=== PATIENT | male | born 2000 | race Asian ===

== ENCOUNTER 2022-03-02 16:03 | Outpatient (CLI) | payer OTHER ==
--- NOTE | 2022-03-02 19:03 | XRAY Report ---
PROCEDURE: Elbow 3 View RT INDICATIONS: CONTUSION OF RIGHT ELBOW TECHNIQUE: 3 views of the elbow were acquired. COMPARISON: None FINDINGS: Bones: No fractures or dislocations. No suspicious bony lesions. Soft tissues: No elbow joint effusion. No suspicious soft tissue calcifications. IMPRESSION: Normal right elbow radiographs Reviewed by: Tal Ortega MD on 03/02/2022 6:01 PM [place] Approved by: Tal Ortega MD on 03/02/2022 6:01 PM [facility] Station ID: [id number]
== END 2022-03-02 16:04 | disposition home or self-care (01) ==
LOC: DI 16:03
PROVIDERS: ATTEND Physician Assistant
DX: S50.01XA Contusion of right elbow, initial encounter (principal)

== ENCOUNTER 2022-11-24 10:22 | Outpatient (CLI) | payer OTHER ==
--- NOTE | 2022-11-24 11:40 | Sleep Patient Instructions ---
Sleep Center Visit Summary - Patient Visit Information Reason for Visit: Initial Consultation - Patient Instructions Instructions Attached: Sleep Study Home Monitor, Sleep Clinic Visit, Sleep Study Additional Instructions: You will be completing a sleep study, either an in-lab polysomnography (PSG) or home sleep study (HST). You will follow-up in the sleep care office after the sleep study is completed to hear the results and talk about therapy, if needed. You will be called by our office staff to schedule this appointment, but you may contact us with any questions. - Clinic Information Contact: [facility] [address] [place] [email or web address] T: [phone]
--- NOTE | 2022-11-24 11:44 | SLEEP CARE CONSULTATION ---
Information from patient questionnaire entered by Anitra Baires. I have reviewed and concur with the information entered by Anitra Baires. This document represents the service I personally performed and the decisions made by me, Vero Medina ARNP. History of Present Illness Service Date and Time: 11/24/2022 1022 Reason for Visit: New patient Chief Complaint: reports: Insomnia, Unrefreshed sleep, Frequent awakenings at night Date of Onset: Approximately 8 months, start of 2022 Usual bedtime: 11:30 PM [facility] (changed to 0545 AM with recent schedule change) Time it takes to fall asleep: ~45 minutes Snores at night: No Observed to quit breathing while asleep: No Sleeps alone due to snoring: No Number of times waking at night: Once to none Reasons for waking at night: reports: Other (Unknown reason). denies: Choking, Gasping for air Toss, Turn, or Twitch while sleeping: Yes Recalls having dreams: Yes Usually gets out of bed at: 8-9 AM (getting up 12-1 PM) Feels refreshed in the morning: No Morning headache: No Sleepy or fatigued during the day: Yes Ever fallen asleep while driving: No Takes day naps: Yes (tries not to nap on workdays; only weekend naps - under an hour) Dreams during day naps: No Prior sleep studies: No Additional HPI information: I had the pleasure of seeing FRANCISCO JAVIER LOUIS today regarding the possibility of him having a sleep disorder. His current complaints are unrefreshed sleep, insomnia and frequent night awakenings. He states for his job in the [employer] he will switch work schedules from days to nights. He has done this for over 3 years. He is waking up frequently at night and is waking up not feeling refreshed. He was encouraged by co-workers to get a sleep study to check out his sleep. He states he sleeps alone so does not know if he snores or has pauses in breathing. He denies waking up gasping or choking. He can take up to 45 minutes to fall asleep. He states if he hears something like " a bird" he may be awake for 2 more hours despite having blackout curtains to keep light out with current over night work schedule. 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 Patient is single and lives in [place]. Have you smoked in the past 12 months: No Alcohol use: Yes Alcohol amount and frequency: 1-2 drinks a week Caffeine use: Yes Caffeine amount and frequency: 1-2 drinks every other day Family History Family history of sleep disordered breathing: Yes Family Hx Sleep Apnea: Father: Snoring, Grandparent: Snoring Allergies and Home Medications Known drug allergies: No Drug allergies reviewed: Yes Home medication list reviewed: Yes (no daily medications) Allergy and home medication list: Supplements: Magnesium Zinc Vitamin E, C, D and B12 Calcium Review of Systems Weight gain over past 5 years: 20 lbs Cardiovascular: denies: high blood pressure Gastrointestinal: denies: heartburn Neurological: denies: headaches Psychiatric: denies: anxiety, depression Ear/Nose/Throat: denies: tonsillectomy, wisdom teeth removed Musculoskeletal: reports: joint pain (stiffness), back pain, mobility problems Immunologic: reports: sneezing (Runny nose), allergies to food or environment (grass, pollen) Physical Exam Vital signs obtained and entered by: Vero Molina NP Blood Pressure: 108/71 Cuff size: wrist (right) Heart Rate: 71 O2 Saturation: 97 Height: 5 ft 9 in Weight: 191 lb 9.6 oz Body Mass Index: 28.3 BMI Classification: Overweight Neck circumference: 15 (inches) Mouth and throat: narrow oropharynx Soft palate: normal Hard palate: normal Uvula: normal Uvula visualization: 25% Mallampati Class III Tongue: enlarged in size with teeth stevens on lateral edges Tonsils: 1+ Neck: normal w/o lymphadenopathy or thyromegaly Heart: regular rate and rhythm Lungs: clear bilaterally Impression and Plan 1. Suspected Obstructive Sleep Apnea-Hypopnea Syndrome, as suggested by a history of frequent awakening during the night, unrefreshed sleep, and insomnia. Narrow oropharynx and obesity are common predisposing factors for obstructive sleep apnea-hypopnea syndrome. I recommend proceeding to polysomnography to confirm the diagnosis and to assess severity. If the patient has significant sleep disordered breathing, a manual CPAP titration study will also be performed to find the optimal treatment pressure. I informed the patient of what the sleep studies involve and after some discussion, obtained agreement to proceed. The pathophysiology of obstructive sleep apnea-hypopnea syndrome was discussed with the patient and health risks of cardiovascular and cerebrovascular disease if not treated. Risks of drowsy driving discussed in detail and patient advised to avoid long distance driving and to pan puller at the first sign of drowsiness. Patient agreed to plan. * Schedule polysomnography . * Avoid long distance driving or driving when feeling sleepy. * Avoid alcohol, sedative and muscle relaxant around bedtime. * Attempt to lose weight. * Review instructions provided by trained office staff on how to prepare for the sleep study. * Return for follow-up after sleep study completed. Counseling Topics: Weight loss health impact Visit Type: In Office Time Spent with Patient (minutes): 30 Provider Statement: I spent 100% of the Face to Face Visit with the patient with greater than 50% spent counseling the patient and coordination of care.
[2022-11-24 11:50] VITALS: BP 108/71; O2SAT 97
== END 2022-11-24 10:23 | disposition home or self-care (01) ==
LOC: SC 10:22
PROVIDERS: ATTEND Nurse Practitioner Family
DX: R53.83 Other fatigue (principal); G47.8 Other sleep disorders; G47.00 Insomnia, unspecified; E66.3 Overweight; Z68.28 Body mass index [BMI] 28.0-28.9, adult
CPT/HCPCS: 99203; 99212

== ENCOUNTER 2023-01-18 20:30 | Outpatient (CLI) | payer OTHER | END 2023-01-18 20:31 | disposition home or self-care (01) | LOC: SC 20:30 | PROVIDERS: ATTEND Nurse Practitioner Family | DX: G47.8 Other sleep disorders (principal); R53.83 Other fatigue; E66.3 Overweight | CPT/HCPCS: 95810 ==

== ENCOUNTER 2023-01-22 11:21 | Outpatient (CLI) | payer OTHER ==
--- NOTE | 2023-01-22 10:46 | SLEEP CARE CONSULTATION ---
Information from patient questionnaire entered by Chantell Leigh. I have reviewed and concur with the information entered by Chantell Leigh. This document represents the service I personally performed and the decisions made by , Vero Medina ARNP. History of Present Illness Service Date and Time: 01/22/2023 1040 Initial [place] Sleepiness Scale score: 8 (in 2022) Current [place] Sleepiness Scale score: 8 (01/22/23) Additional HPI information: FRANCISCO JAVIER LOUIS returns via telephone visit for follow up and results of the recently performed polysomnography. The patient was informed of the following findings: No significant sleep di sordered breathing with an average AHI of 0.2 and [place] oxygen saturation of 91%. I explained the pathophysiology behind obstructive sleep apnea. Patient does not have sleep apnea and was advised how weight gain could increase the risk of developing sleep apnea in the future. I strongly encouraged the patient to lose weight. Patient has mild snoring. Snoring can be reduced by weight loss. Weight loss is best achieved with diet consult. Patient instructed to contact PCP for referral. Snoring can also be treated with an oral appliance from a dentist. Advised to check insurance coverage. In addition, an ENT evaluation can be do to see if other treatment is indicated. Patient counseled not drink alcohol less than 4 hours before bedtime as it can increase snoring and apnea. Patient was caut ioned about risks of drowsy driving until sleepiness symptoms resolve. Patient denies drowsy driving. Sleep Study - Results Type of Sleep Study: Polysomnography (COMPLETED 01/18/23) Prior sleep studies: No Polysomnography/Home Sleep Study results: IMPRESSION: The quality of the study is good. The patient had reduced sleep efficiency due to frequent awakenings throughout the night. The sleep architecture was relatively normal considering the first-night effect. Respiratory monitoring showed no significant sleep disordered breathing (AHI = 0.2) or hypoxia ([place] oxygen saturation of 91%). The patient slept adequately in supine position (supine AHI = 0.5; non-supine = 0.00). Snore was light in intensity. There was no significant periodic leg movement of sleep. Cardiac rhythm was normal sinus rhythm without significant arrhythmia. No abnormal behavior (parasomnia) observed during the night. Allergies and Home Medications Known drug allergies: No Drug allergies reviewed: Yes Home medication list reviewed: Yes (no changes) Review of Systems Review of systems same as previous: Yes (NO CHANGE) Physical Exam Vital signs obtained and entered by: CHANTELL Phelan MA Height: 5 ft 10 in (PER PT) Weight: 195 lb (PER PT) Body Mass Index: 27.9 BMI Classification: Overweight Impression and Plan 1. Snoring but no significant sleep disordered breathing. He may have shift work sleep disorder which is due to changing work schedules or work non- traditional schedules. This can be improved with lifestyle changes, keeping to a regular sleep schedule, etc. Patient advised that often weight loss will reduce snoring as well as apnea risk. An oral appliance can also be used for snoring. This would require a dental consultation. Patient cautioned not to use other online appliances as can cause bite issues. Patient is advised to check if insurance will cover. An ENT consult can also be helpful to determine if any other treatment is an option. 2. Overweight, unspecified. Currently patients BMI is 27.9. Obesity increases the risk of apnea, CPAP pressure requirements and overall health risks especially cardiovascular and diabetes. Thus patient is advised to lose weight. * Attempt to lose weight * Avoid alcohol consumption near bedtime * The patient is cautioned about driving until sleepiness is completely resolved. * Return as needed for follow up. Counseling Topics: Weight loss health impact Follow up with Sleep Care in: as needed Visit Type: Telehealth Phone Video Type: [place] Patient Location: Work Location of Provider: Office Patient agrees and consents to this telehealth visit type: Yes Patient agrees to have their insurance billed: Yes Time Spent with Patient (minutes): 15 Provider Statement: I spent 100% of the Telehealth Phone Call with the patient with greater than 50% spent counseling the patient and coordination of care.
== END 2023-01-22 11:22 | disposition home or self-care (01) ==
LOC: SC 11:21
PROVIDERS: ATTEND Nurse Practitioner Family
DX: R06.83 Snoring (principal); E66.3 Overweight; Z68.27 Body mass index [BMI] 27.0-27.9, adult
CPT/HCPCS: 99442